=== PATIENT | female | born 1975 | race Caucasian/White ===

== ENCOUNTER → 2023-09-23 18:21 | Outpatient (REF) | payer OTHER, SELFPAY | LOC: MRI 3T 18:21 | PROVIDERS: ATTENDING PHYSICIAN Otolaryngology; FAMILY PHYSICIAN Family Medicine | DX: R43.0 Anosmia (principal) | CPT/HCPCS: 70553 ==

== ENCOUNTER → 2024-02-13 20:13 | Outpatient (REF) | payer OTHER, SELFPAY | LOC: MRI 3T 20:13 | PROVIDERS: ATTENDING PHYSICIAN Neurological Surgery; FAMILY PHYSICIAN Family Medicine | DX: Q27.9 Congenital malformation of peripheral vascular system, unspecified (principal) | CPT/HCPCS: 70546 ==